=== PATIENT | female | born 1945 | race Caucasian/White ===

== ENCOUNTER 2020-09-28 12:48 | Inpatient (IN) | payer MEDICARE, BC ==
[2020-09-28] MEDS ORDERED: Fentanyl 100 MCG/2 ML VIAL ONE (13:10)
[2020-09-28] MEDS ORDERED: Fentanyl CADD 100 ML IV SCH (13:30)
[2020-09-28] MEDS ORDERED: Morphine 2 MG/ML VIAL SLOW IVP PRN (13:30)
[2020-09-28] MEDS ORDERED: Propofol 1,000 MG/100 ML VIAL IV PRN (13:30)
[2020-09-28] MEDS ORDERED: DISCONTINUE PREVIOUS NARCOTIC PAIN MEDICATIONS AND BENZODIAZEPINES FS SCH (13:30)
[2020-09-28] MEDS ORDERED: Fentanyl BOLUS 250 ML IVPB PRN (13:30)
[2020-09-28] MEDS ORDERED: Propofol BOLUS 1,000 MG/100 ML VIAL IV PRN (13:30)
[2020-09-28] MEDS ORDERED: Lorazepam 2 MG/ML VIAL SLOW IVP PRN (13:30)
[2020-09-28 13:34] LABS: Actual Bicarbonate (HCO3a) 23.9 mEq/L (22-28); Analyzer IN Cardio ER; Base Excess (BEa) -3.7 mEq/L (-2.0 to +3.0); Calcium, Ionized (arterial) 1.15 mmol/L (1.12-1.30); Carboxyhemoglobin (COHb) 0.4 gm% (0.0-3.0); O2 Tension (PaO2), arterial 223.1 mmHg (> 70.0); Potassium - ABG Lab 3.45 mmol/L (3.70-5.30); pH, Arterial 7.26 (7.35-7.45)
[2020-09-28 13:35] LABS: Puncture Site LRA
[2020-09-28] MEDS ORDERED: Iopamidol 370 76% 100 ML VIAL ONE (14:17)
[2020-09-28] MEDS ORDERED: Ventilator Sedation Protocol FS SCH (15:30)
[2020-09-28 15:33] LABS: Troponin I Less than 0.010 ng/mL (< 0.028)
[2020-09-28] MEDS ORDERED: Enoxaparin Sodium 80 MG/0.8 ML SYRINGE ONE (15:41)
[2020-09-28] MEDS ORDERED: Azithromycin 500 MG VIAL ONE (15:41)
[2020-09-28] MEDS ORDERED: Propofol 1,000 MG/100 ML VIAL IV ONE (16:40)
[2020-09-28] MEDS ORDERED: Sterile Water 10 ML ONE (17:11)
[2020-09-28] MEDS ORDERED: Vecuronium 10 MG VIAL ONE (17:11)
[2020-09-28 17:45] LABS: Troponin I Less than 0.010 ng/mL (< 0.028)
[2020-09-28 18:23] LABS: Lactic Acid 1.2 mmol/L (0.5-2.2)
[2020-09-28 20:53] LABS: Troponin I Less than 0.010 ng/mL (< 0.028)
[2020-09-29] MEDS ORDERED: Digoxin 0.5 MG/2 ML AMP SLOW IVP SCH (06:00)
[2020-09-29 06:16] LABS: #Lymphocytes 0.8 thou/uL (1.20-3.40); #Monocytes 0.5 thou/uL (0.11-0.59); #Neutrophils 6.6 thou/uL (1.40-6.50); %Basophils 0.1 % (0.0-1.0); %Eosinophils 0.1 % (0.0-10.0); %Lymphocytes 9.7 % (21.0-51.0); %Monocytes 5.8 % (0.0-10.0); %Neutrophils 84.2 % (42.0-75.0); Hemoglobin 10.2 g/dL (12.0-16.0); Mean Corpuscular HGB CONC 31.3 g/dL (32.0-36.0); Mean Corpuscular Hemoglobin 29.2 pg (27.0-31.0); Mean Corpuscular Volume 93.5 fL (78.0-98.0); Mean Platelet Volume 9.6 fL (7.4-10.4); Platelet Count 165 thou/uL (130-400); RBC Distribution Width 14.6 % (11.5-14.5); Red Blood Cell (RBC) Count 3.48 mill/uL (4.20-5.40); White Blood Cell (WBC) Count 7.8 thou/uL (4.8-10.8)
[2020-09-29 06:28] LABS: Anion Gap 16 mmol/L (10-20); BUN (Urea Nitrogen) 25 mg/dL (9.8-20.1); Calc. Creatinine Clearance 53 mL/min (70-130); Calcium 8.3 mg/dL (7.8-10.44); Carbon Dioxide 23 mmol/L (23-31); Chloride 110 mmol/L (98-107); Glucose 123 mg/dL (83-110); Potassium 3.7 mmol/L (3.5-5.1); Sodium 145 mmol/L (136-145)
[2020-09-29 06:31] LABS: ALT (SGPT) 26 U/L (8-55); AST (SGOT) 27 U/L (5-34); Albumin 3.2 g/dL (3.4-4.8); Alkaline Phosphatase 83 U/L (40-110); Anion Gap 13 mmol/L (10-20); BUN (Urea Nitrogen) 24 mg/dL (9.8-20.1); Bilirubin, Total 0.4 mg/dL (0.2-1.2); Calc. Creatinine Clearance 54 mL/min (70-130); Calcium 8.3 mg/dL (7.8-10.44); Carbon Dioxide 23 mmol/L (23-31); Chloride 110 mmol/L (98-107); Globulin 2.8 g/dL (2.4-3.5); Glucose 123 mg/dL (83-110); Potassium 3.6 mmol/L (3.5-5.1); Sodium 142 mmol/L (136-145)
[2020-09-29 07:45] LABS: Actual Bicarbonate (HCO3a) 24.9 mEq/L (22-28); Base Excess (BEa) -1.1 mEq/L (-2.0 to +3.0); CO2 Tension 47.4 mmHg (35.0-45.0); Calcium, Ionized (arterial) 1.17 mmol/L (1.12-1.30); Carboxyhemoglobin (COHb) 0.4 gm% (0.0-3.0); Hemoglobin (Hb) 10.8 g/dL (12.0-16.0); O2 Tension (PaO2), arterial 67.3 mmHg (> 70.0); Potassium - ABG Lab 3.64 mmol/L (3.70-5.30); pH, Arterial 7.34 (7.35-7.45)
[2020-09-29 07:47] LABS: Puncture Site LRA
[2020-09-29] MEDS: methylPREDNISolone Sod Succ 40 MG VIAL IVP SCH (08:53)
[2020-09-29] MEDS ORDERED: Sodium Chloride 0.9% 500 ML IVPB SCH (09:00)
[2020-09-29] MEDS ORDERED: Pantoprazole 40 MG VIAL IVP SCH (09:00)
[2020-09-29] MEDS ORDERED: FLU VACC QS2020-21(65YR UP)/PF 240 MCG/0.7 ML SYRINGE IM ONE (09:00)
[2020-09-29] MEDS ORDERED: Amiodarone 150 MG, Admixture Fee 1 EACH in Dextrose 5% in Water 100 ML IVPB SCH (09:00)
[2020-09-29] MEDS ORDERED: Enoxaparin Sodium 40 MG/0.4 ML SYRINGE SC SCH (09:00)
[2020-09-29] MEDS: Amiodarone 450 MG, Admixture Fee 1 EACH in Dextrose 5% in Water 250 ML IVPB SCH ×2 (09:14→15:56)
[2020-09-29] MEDS ORDERED: Fentanyl CADD 100 ML ONE (10:04)
[2020-09-29] MEDS: cefTRIAXone\\ROCEPHIN 2 GM in Sodium Chloride 0.9% 100 ML IVPB SCH (10:48)
[2020-09-29] MEDS: Lactated Ringer's 1,000 ML IV SCH (15:19)
[2020-09-29] MEDS: Azithromycin 500 MG in Sodium Chloride 0.9% 250 ML 250 ML IVPB SCH (15:19)
[2020-09-30] MEDS: Lactated Ringer's 1,000 ML IV SCH (00:54)
[2020-09-30] MEDS ORDERED: Haloperidol Lactate 5 MG/ML VIAL SLOW IVP PRN (01:34)
[2020-09-30] MEDS ORDERED: Ondansetron PF 4 MG/2 ML Vial IVP PRN ×2 (01:40→01:45)
[2020-09-30 03:50] LABS: #Lymphocytes 0.8 thou/uL (1.20-3.40); #Monocytes 0.6 thou/uL (0.11-0.59); %Basophils 0.2 % (0.0-1.0); %Eosinophils 0.2 % (0.0-10.0); %Lymphocytes 8.6 % (21.0-51.0); %Monocytes 6.7 % (0.0-10.0); %Neutrophils 84.3 % (42.0-75.0); Hemoglobin 10.1 g/dL (12.0-16.0); Mean Corpuscular HGB CONC 31.6 g/dL (32.0-36.0); Mean Corpuscular Hemoglobin 29.7 pg (27.0-31.0); Mean Platelet Volume 9.5 fL (7.4-10.4); Platelet Count 180 thou/uL (130-400); RBC Distribution Width 14.6 % (11.5-14.5); White Blood Cell (WBC) Count 9.5 thou/uL (4.8-10.8)
[2020-09-30 04:14] LABS: ALT (SGPT) 23 U/L (8-55); AST (SGOT) 19 U/L (5-34); Albumin 3.3 g/dL (3.4-4.8); Alkaline Phosphatase 86 U/L (40-110); Anion Gap 15 mmol/L (10-20); BUN (Urea Nitrogen) 28 mg/dL (9.8-20.1); Bilirubin, Total 0.5 mg/dL (0.2-1.2); Calc. Creatinine Clearance 63 mL/min (70-130); Calcium 9.1 mg/dL (7.8-10.44); Carbon Dioxide 23 mmol/L (23-31); Chloride 111 mmol/L (98-107); Globulin 2.9 g/dL (2.4-3.5); Glucose 95 mg/dL (83-110); Magnesium 2.1 mg/dL (1.6-2.6); Potassium 3.5 mmol/L (3.5-5.1); Protein, Total 6.2 g/dL (5.8-8.1); Sodium 145 mmol/L (136-145)
[2020-09-30] MEDS ORDERED: Non-Formulary Item 1 EACH (Omeprazole [Omeprazole] 20 MG Capsule.Dr) PO SCH (09:00)
[2020-09-30] MEDS ORDERED: Non-Formulary Item 1 EACH (Fluticasone/Umeclidin/Vilanter [Trelegy Ellipta 100-62.5-25] 1 INH SCH (09:00)
[2020-09-30] MEDS ORDERED: Non-Formulary Item 1 EACH (Losartan Potassium [Losartan Potassium] 100 MG Tablet) PO SCH (09:00)
[2020-09-30] MEDS ORDERED: Non-Formulary Item 1 EACH (Carvedilol [Coreg] 12.5 MG Tab) PO SCH (09:00)
[2020-09-30] MEDS ORDERED: Fluticasone/Umeclidin/Vilanter [Trelegy Ellipta 100-62.5-25] INH SCH (09:00)
[2020-09-30] MEDS ORDERED: Non-Formulary Item 1 EACH (Amlodipine Besylate [Amlodipine Besylate] 2.5 MG Tablet) PO SCH (09:00)
[2020-09-30] MEDS ORDERED: Non-Formulary Item 1 EACH (Magnesium Oxide [Mag-Oxide] 200 MG Tablet) PO SCH (09:00)
[2020-09-30] MEDS ORDERED: Non-Formulary Item 1 EACH (Potassium Chloride [Potassium Chloride] 10 MEQ Capsule.Er) PO SCH (09:00)
[2020-09-30] MEDS ORDERED: Carvedilol 6.25 MG TAB PO SCH (09:00)
[2020-09-30] MEDS ORDERED: Allopurinol 300 MG TAB PO SCH (09:00)
[2020-09-30 10:33] LABS: Actual Bicarbonate (HCO3a) 27.8 mEq/L (22-28); Base Excess (BEa) 1.4 mEq/L (-2.0 to +3.0); CO2 Tension 52.5 mmHg (35.0-45.0); Calcium, Ionized (arterial) 1.24 mmol/L (1.12-1.30); Carboxyhemoglobin (COHb) 0.5 gm% (0.0-3.0); Hemoglobin (Hb) 10.5 g/dL (12.0-16.0); Potassium - ABG Lab 3.53 mmol/L (3.70-5.30); pH, Arterial 7.34 (7.35-7.45)
[2020-09-30 10:36] LABS: O2 Tension (PaO2), arterial 56.6 mmHg (> 70.0)
[2020-09-30] MEDS: Carvedilol 6.25 MG TAB PO SCH ×2 (11:11→20:14)
[2020-09-30] MEDS: Magnesium Oxide 400 MG TAB PO SCH (11:11)
[2020-09-30] MEDS: Apixaban 5 MG TAB PO SCH (11:11)
[2020-09-30] MEDS: Losartan 25 MG TAB PO SCH (11:12)
[2020-09-30] MEDS: Amlodipine 5 MG TAB PO SCH (11:12)
[2020-09-30] MEDS: Levothyroxine Sodium 25 MCG TAB PO SCH (11:13)
[2020-09-30] MEDS: methylPREDNISolone Sod Succ 40 MG VIAL IVP SCH ×2 (11:17→22:09)
[2020-09-30] MEDS: cefTRIAXone\\ROCEPHIN 2 GM in Sodium Chloride 0.9% 100 ML IVPB SCH (12:00)
[2020-09-30] MEDS: Potassium Chloride 10 MEQ TAB PO SCH ×2 (13:55→20:15)
[2020-09-30] MEDS: Azithromycin 500 MG in Sodium Chloride 0.9% 250 ML 250 ML IVPB SCH (15:43)
[2020-09-30] MEDS ORDERED: Mometasone 100 MCG/PUFF (1 INHALER) INH SCH (18:30)
[2020-09-30] MEDS ORDERED: Temazepam 15 MG CAP PO SCH (21:00)
[2020-09-30] MEDS ORDERED: tiZANidine HCl 4 MG TAB PO SCH (21:00)
[2020-09-30] MEDS ORDERED: Non-Formulary Item 1 EACH (Tizanidine Hcl [Tizanidine Hcl] 4 MG Capsule) PO SCH (21:00)
[2020-09-30] MEDS ORDERED: Non-Formulary Item 1 EACH (Temazepam [Temazepam] 30 MG Capsule) PO SCH (21:00)
[2020-10-01] MEDS ORDERED: hydrALAZINE 20 MG/ML VIAL SLOW IVP SCH (02:15)
[2020-10-01] MEDS ORDERED: Haloperidol Lactate 5 MG/ML VIAL SLOW IVP PRN (03:14)
[2020-10-01] MEDS ORDERED: Haloperidol Lactate 5 MG/ML VIAL SLOW IVP SCH (03:30)
[2020-10-01 06:00] LABS: #Lymphocytes 0.5 thou/uL (1.20-3.40); #Monocytes 0.6 thou/uL (0.11-0.59); #Neutrophils 10.9 thou/uL (1.40-6.50); %Basophils 0.1 % (0.0-1.0); %Lymphocytes 3.9 % (21.0-51.0); %Monocytes 5.1 % (0.0-10.0); %Neutrophils 90.9 % (42.0-75.0); Hemoglobin 11.1 g/dL (12.0-16.0); Mean Corpuscular Hemoglobin 28.7 pg (27.0-31.0); Mean Corpuscular Volume 92.6 fL (78.0-98.0); Mean Platelet Volume 9.2 fL (7.4-10.4); Platelet Count 236 thou/uL (130-400); RBC Distribution Width 14.4 % (11.5-14.5); Red Blood Cell (RBC) Count 3.85 mill/uL (4.20-5.40)
[2020-10-01 06:19] LABS: ALT (SGPT) 21 U/L (8-55); AST (SGOT) 21 U/L (5-34); Albumin 3.7 g/dL (3.4-4.8); Alkaline Phosphatase 102 U/L (40-110); Anion Gap 19 mmol/L (10-20); BUN (Urea Nitrogen) 26 mg/dL (9.8-20.1); Bilirubin, Total 0.6 mg/dL (0.2-1.2); Calc. Creatinine Clearance 75 mL/min (70-130); Calcium 9.7 mg/dL (7.8-10.44); Carbon Dioxide 20 mmol/L (23-31); Chloride 113 mmol/L (98-107); Globulin 3.4 g/dL (2.4-3.5); Glucose 119 mg/dL (83-110); Potassium 3.6 mmol/L (3.5-5.1); Protein, Total 7.1 g/dL (5.8-8.1); Sodium 148 mmol/L (136-145)
[2020-10-01] MEDS: methylPREDNISolone Sod Succ 40 MG VIAL IVP SCH ×2 (06:22→20:03)
[2020-10-01] MEDS: Amlodipine 5 MG TAB PO SCH (07:40)
[2020-10-01] MEDS: Carvedilol 6.25 MG TAB PO SCH ×2 (07:40→20:03)
[2020-10-01 07:49] LABS: Actual Bicarbonate (HCO3a) 23.4 mEq/L (22-28); Analyzer IN Cardio ER; Base Excess (BEa) -0.5 mEq/L (-2.0 to +3.0); Calcium, Ionized (arterial) 1.25 mmol/L (1.12-1.30); Carboxyhemoglobin (COHb) 0.6 gm% (0.0-3.0); Hemoglobin (Hb) 12.4 g/dL (12.0-16.0); Potassium - ABG Lab 3.46 mmol/L (3.70-5.30); pH, Arterial 7.43 (7.35-7.45)
[2020-10-01 07:55] LABS: O2 Tension (PaO2), arterial 55.2 mmHg (> 70.0); Puncture Site RRA
[2020-10-01] MEDS ORDERED: Lactated Ringer's 1,000 ML IV SCH (09:15)
[2020-10-01] MEDS ORDERED: Amiodarone 150 MG, Admixture Fee 1 EACH in Dextrose 5% in Water 100 ML IVPB SCH (09:15)
[2020-10-01] MEDS: Amiodarone 450 MG, Admixture Fee 1 EACH in Dextrose 5% in Water 250 ML IVPB SCH (09:16)
[2020-10-01] MEDS: Magnesium Oxide 400 MG TAB PO SCH (10:21)
[2020-10-01] MEDS: Losartan 25 MG TAB PO SCH (10:22)
[2020-10-01] MEDS: Levothyroxine Sodium 25 MCG TAB PO SCH (10:22)
[2020-10-01] MEDS: Allopurinol 100 MG TAB PO SCH (10:22)
[2020-10-01] MEDS: Sodium Chloride 0.45% 1,000 ML IV SCH ×2 (10:39→23:56)
[2020-10-01] MEDS: Apixaban 5 MG TAB PO SCH ×3 (11:18→20:02)
[2020-10-01] MEDS: cefTRIAXone\\ROCEPHIN 2 GM in Sodium Chloride 0.9% 100 ML IVPB SCH (11:25)
[2020-10-01] MEDS: Potassium Chloride 10 MEQ TAB PO SCH ×2 (11:34→19:57)
[2020-10-01] MEDS: Lorazepam 2 MG/ML VIAL SLOW IVP PRN (19:42)
[2020-10-02] MEDS: hydrALAZINE 20 MG/ML VIAL SLOW IVP SCH ×3 (01:32→21:38)
[2020-10-02] MEDS: Lorazepam 2 MG/ML VIAL SLOW IVP PRN ×2 (03:04→19:55)
[2020-10-02 03:22] LABS: #Lymphocytes 0.7 thou/uL (1.20-3.40); #Monocytes 0.4 thou/uL (0.11-0.59); #Neutrophils 8.4 thou/uL (1.40-6.50); %Basophils 0.1 % (0.0-1.0); %Lymphocytes 7.5 % (21.0-51.0); %Monocytes 3.7 % (0.0-10.0); %Neutrophils 88.6 % (42.0-75.0); Mean Corpuscular Hemoglobin 29.3 pg (27.0-31.0); Mean Corpuscular Volume 91.6 fL (78.0-98.0); Mean Platelet Volume 9.2 fL (7.4-10.4); Platelet Count 227 thou/uL (130-400); RBC Distribution Width 14.7 % (11.5-14.5); Red Blood Cell (RBC) Count 3.76 mill/uL (4.20-5.40); White Blood Cell (WBC) Count 9.5 thou/uL (4.8-10.8)
[2020-10-02 03:48] LABS: ALT (SGPT) 22 U/L (8-55); AST (SGOT) 20 U/L (5-34); Albumin 3.6 g/dL (3.4-4.8); Alkaline Phosphatase 101 U/L (40-110); Anion Gap 16 mmol/L (10-20); BUN (Urea Nitrogen) 29 mg/dL (9.8-20.1); Bilirubin, Total 0.7 mg/dL (0.2-1.2); Calc. Creatinine Clearance 72 mL/min (70-130); Calcium 9.1 mg/dL (7.8-10.44); Carbon Dioxide 21 mmol/L (23-31); Chloride 112 mmol/L (98-107); Globulin 3.1 g/dL (2.4-3.5); Glucose 143 mg/dL (83-110); Potassium 3.3 mmol/L (3.5-5.1); Protein, Total 6.7 g/dL (5.8-8.1); Sodium 146 mmol/L (136-145)
[2020-10-02] MEDS ORDERED: Acetaminophen 325 MG TAB PO SCH ×2 (04:30)
[2020-10-02] MEDS ORDERED: hydrALAZINE 20 MG/ML VIAL SLOW IVP SCH ×2 (06:30→21:15)
[2020-10-02] MEDS ORDERED: Potassium Chloride 20 MEQ TAB PO SCH (07:00)
[2020-10-02] MEDS: Apixaban 5 MG TAB PO SCH ×2 (07:36→19:59)
[2020-10-02] MEDS: Carvedilol 6.25 MG TAB PO SCH ×2 (07:36→19:54)
[2020-10-02] MEDS: Losartan 25 MG TAB PO SCH (07:36)
[2020-10-02] MEDS: Magnesium Oxide 400 MG TAB PO SCH (07:36)
[2020-10-02] MEDS: Levothyroxine Sodium 25 MCG TAB PO SCH (07:36)
[2020-10-02] MEDS: Potassium Chloride 10 MEQ TAB PO SCH (07:37)
[2020-10-02] MEDS: Allopurinol 100 MG TAB PO SCH (07:37)
[2020-10-02] MEDS: methylPREDNISolone Sod Succ 40 MG VIAL IVP SCH ×2 (07:38→19:53)
[2020-10-02] MEDS: Amiodarone 450 MG, Admixture Fee 1 EACH in Dextrose 5% in Water 250 ML IVPB SCH (09:30)
[2020-10-02] MEDS: cefTRIAXone\\ROCEPHIN 2 GM in Sodium Chloride 0.9% 100 ML IVPB SCH (10:24)
[2020-10-02] MEDS: Sodium Chloride 0.45% 1,000 ML IV SCH (13:09)
[2020-10-02] MEDS: Potassium Bicarbonate/Cit Ac 20 MEQ TAB PO SCH (19:53)
[2020-10-02] MEDS: Pantoprazole 40 MG GRANULES PACKET PO SCH (19:53)
[2020-10-02] MEDS: OLANZapine 2.5 MG TAB PO SCH (19:54)
[2020-10-02] MEDS: Amiodarone 200 MG TAB PO SCH (19:54)
[2020-10-02] MEDS: hydrALAZINE 20 MG/ML VIAL SLOW IVP PRN (22:12)
[2020-10-03] MEDS: Sodium Chloride 0.45% 1,000 ML IV SCH (03:51)
[2020-10-03 04:18] LABS: Albumin 3.1 g/dL (3.4-4.8)
[2020-10-03 04:19] LABS: Chloride 114 mmol/L (98-107); Potassium 4.2 mmol/L (3.5-5.1); Sodium 146 mmol/L (136-145)
[2020-10-03 04:20] LABS: Calcium 8.7 mg/dL (7.8-10.44)
[2020-10-03 04:21] LABS: Glucose 116 mg/dL (83-110); Protein, Total 6.1 g/dL (5.8-8.1)
[2020-10-03 04:22] LABS: Bilirubin, Total 0.6 mg/dL (0.2-1.2); Carbon Dioxide 20 mmol/L (23-31)
[2020-10-03 04:23] LABS: Alkaline Phosphatase 95 U/L (40-110)
[2020-10-03 04:24] LABS: Calc. Creatinine Clearance 76 mL/min (70-130)
[2020-10-03 04:25] LABS: BUN (Urea Nitrogen) 27 mg/dL (9.8-20.1)
[2020-10-03 04:26] LABS: ALT (SGPT) 31 U/L (8-55); AST (SGOT) 33 U/L (5-34)
[2020-10-03 05:16] LABS: Anion Gap 16 mmol/L (10-20)
[2020-10-03] MEDS: methylPREDNISolone Sod Succ 40 MG VIAL IVP SCH ×2 (08:21→21:16)
[2020-10-03] MEDS: Potassium Bicarbonate/Cit Ac 20 MEQ TAB PO SCH ×2 (08:21→21:16)
[2020-10-03] MEDS: Amiodarone 200 MG TAB PO SCH ×2 (08:21→21:15)
[2020-10-03] MEDS: Magnesium Oxide 400 MG TAB PO SCH (08:21)
[2020-10-03] MEDS: Pantoprazole 40 MG GRANULES PACKET PO SCH ×2 (08:22→21:16)
[2020-10-03] MEDS: Levothyroxine Sodium 25 MCG TAB PO SCH (08:22)
[2020-10-03] MEDS: Allopurinol 100 MG TAB PO SCH (08:22)
[2020-10-03] MEDS: Carvedilol 6.25 MG TAB PO SCH ×2 (08:22→21:16)
[2020-10-03] MEDS: Losartan 25 MG TAB PO SCH (08:25)
[2020-10-03] MEDS: Apixaban 5 MG TAB PO SCH ×2 (08:26→21:16)
[2020-10-03 08:31] LABS: #Eosinphils 0.1 thou/uL (0.0-0.7); #Lymphocytes 1.5 thou/uL (1.20-3.40); #Monocytes 1.2 thou/uL (0.11-0.59); #Neutrophils 7.5 thou/uL (1.40-6.50); %Basophils 0.3 % (0.0-1.0); %Eosinophils 0.6 % (0.0-10.0); %Lymphocytes 14.9 % (21.0-51.0); %Monocytes 11.5 % (0.0-10.0); %Neutrophils 72.8 % (42.0-75.0); Hemoglobin 11.5 g/dL (12.0-16.0); Mean Corpuscular HGB CONC 32.3 g/dL (32.0-36.0); Mean Corpuscular Volume 92.8 fL (78.0-98.0); Mean Platelet Volume 8.9 fL (7.4-10.4); Platelet Count 247 thou/uL (130-400); RBC Distribution Width 14.9 % (11.5-14.5); Red Blood Cell (RBC) Count 3.83 mill/uL (4.20-5.40); White Blood Cell (WBC) Count 10.3 thou/uL (4.8-10.8)
[2020-10-03] MEDS ORDERED: Sodium Chloride 0.45% 1,000 ML IV SCH (11:39)
[2020-10-03] MEDS: OLANZapine 2.5 MG TAB PO SCH (21:16)
[2020-10-03] MEDS: Lorazepam 2 MG/ML VIAL SLOW IVP PRN (21:29)
[2020-10-03] MEDS: hydrALAZINE 20 MG/ML VIAL SLOW IVP PRN (21:29)
[2020-10-04 05:39] LABS: Mean Corpuscular HGB CONC 33.5 g/dL (32.0-36.0); Mean Corpuscular Hemoglobin 30.6 pg (27.0-31.0); Mean Corpuscular Volume 91.3 fL (78.0-98.0); Mean Platelet Volume 8.9 fL (7.4-10.4); Platelet Count 281 thou/uL (130-400); RBC Distribution Width 15.1 % (11.5-14.5); White Blood Cell (WBC) Count 10.3 thou/uL (4.8-10.8)
[2020-10-04 05:41] LABS: ALT (SGPT) 37 U/L (8-55); AST (SGOT) 25 U/L (5-34); Albumin 3.4 g/dL (3.4-4.8); Alkaline Phosphatase 97 U/L (40-110); Anion Gap 15 mmol/L (10-20); BUN (Urea Nitrogen) 22 mg/dL (9.8-20.1); Bilirubin, Total 0.7 mg/dL (0.2-1.2); Calc. Creatinine Clearance 78 mL/min (70-130); Carbon Dioxide 23 mmol/L (23-31); Chloride 111 mmol/L (98-107); Globulin 2.7 g/dL (2.4-3.5); Glucose 109 mg/dL (83-110); Potassium 3.9 mmol/L (3.5-5.1); Protein, Total 6.1 g/dL (5.8-8.1); Sodium 145 mmol/L (136-145)
[2020-10-04 06:01] LABS: Band 4 % (5-11); Lymphocytes 13 % (21-51); MDiff Complete? YES; Monocytes 8 % (0-10); Neutrophil 75 % (42-75)
[2020-10-04] MEDS: Levothyroxine Sodium 25 MCG TAB PO SCH (06:17)
[2020-10-04] MEDS: Carvedilol 6.25 MG TAB PO SCH ×2 (09:04→20:45)
[2020-10-04] MEDS: Magnesium Oxide 400 MG TAB PO SCH (09:04)
[2020-10-04] MEDS: Potassium Bicarbonate/Cit Ac 20 MEQ TAB PO SCH ×2 (09:05→20:45)
[2020-10-04] MEDS: Pantoprazole 40 MG GRANULES PACKET PO SCH ×2 (09:05→20:31)
[2020-10-04] MEDS: Amiodarone 200 MG TAB PO SCH ×2 (09:05→20:42)
[2020-10-04] MEDS: Apixaban 5 MG TAB PO SCH ×2 (09:05→20:43)
[2020-10-04] MEDS: Allopurinol 100 MG TAB PO SCH (09:05)
[2020-10-04] MEDS: methylPREDNISolone Sod Succ 40 MG VIAL IVP SCH (09:06)
[2020-10-04] MEDS: Losartan 25 MG TAB PO SCH (09:11)
[2020-10-04] MEDS: Vancomycin HCl 25 MG/ML Oral PO SCH ×2 (14:21→17:59)
[2020-10-04] MEDS: OLANZapine 2.5 MG TAB PO SCH (20:43)
[2020-10-04] MEDS: Pregabalin 75 MG CAP PO SCH (20:44)
[2020-10-04] MEDS ORDERED: AMOXicillin 250 MG CAP PO SCH (21:00)
[2020-10-05] MEDS: Vancomycin HCl 25 MG/ML Oral PO SCH ×2 (00:49→06:00)
[2020-10-05] MEDS: hydrALAZINE 20 MG/ML VIAL SLOW IVP PRN (00:59)
[2020-10-05 04:45] LABS: #Eosinphils 0.2 thou/uL (0.0-0.7); #Lymphocytes 1.4 thou/uL (1.20-3.40); #Monocytes 0.7 thou/uL (0.11-0.59); #Neutrophils 4.2 thou/uL (1.40-6.50); %Basophils 0.5 % (0.0-1.0); %Eosinophils 3.7 % (0.0-10.0); %Lymphocytes 21.1 % (21.0-51.0); %Monocytes 10.9 % (0.0-10.0); %Neutrophils 63.8 % (42.0-75.0); Hemoglobin 11.2 g/dL (12.0-16.0); Mean Corpuscular HGB CONC 33.1 g/dL (32.0-36.0); Mean Corpuscular Hemoglobin 30.2 pg (27.0-31.0); Mean Corpuscular Volume 91.4 fL (78.0-98.0); Mean Platelet Volume 8.6 fL (7.4-10.4); Platelet Count 265 thou/uL (130-400); Red Blood Cell (RBC) Count 3.71 mill/uL (4.20-5.40); White Blood Cell (WBC) Count 6.6 thou/uL (4.8-10.8)
[2020-10-05 05:04] LABS: ALT (SGPT) 33 U/L (8-55); AST (SGOT) 16 U/L (5-34); Albumin 3.2 g/dL (3.4-4.8); Alkaline Phosphatase 82 U/L (40-110); Anion Gap 10 mmol/L (10-20); BUN (Urea Nitrogen) 23 mg/dL (9.8-20.1); Bilirubin, Total 0.5 mg/dL (0.2-1.2); Calc. Creatinine Clearance 66 mL/min (70-130); Calcium 8.2 mg/dL (7.8-10.44); Carbon Dioxide 26 mmol/L (23-31); Chloride 109 mmol/L (98-107); Globulin 2.5 g/dL (2.4-3.5); Glucose 94 mg/dL (83-110); Potassium 3.4 mmol/L (3.5-5.1); Protein, Total 5.7 g/dL (5.8-8.1); Sodium 142 mmol/L (136-145)
[2020-10-05] MEDS: Levothyroxine Sodium 25 MCG TAB PO SCH (05:59)
[2020-10-05] MEDS ORDERED: Potassium Chloride 20 MEQ TAB PO SCH (08:15)
[2020-10-05] MEDS: Pantoprazole 40 MG GRANULES PACKET PO SCH ×2 (09:52→20:15)
[2020-10-05] MEDS: Losartan 25 MG TAB PO SCH (09:53)
[2020-10-05] MEDS: Azithromycin 250 MG TAB PO SCH (09:53)
[2020-10-05] MEDS: Magnesium Oxide 400 MG TAB PO SCH (09:54)
[2020-10-05] MEDS: Potassium Bicarbonate/Cit Ac 20 MEQ TAB PO SCH ×2 (09:54→20:14)
[2020-10-05] MEDS: predniSONE 20 MG TAB PO SCH (09:54)
[2020-10-05] MEDS: Apixaban 5 MG TAB PO SCH ×2 (09:55→20:17)
[2020-10-05] MEDS: Pregabalin 75 MG CAP PO SCH ×2 (09:55→20:15)
[2020-10-05] MEDS: Amiodarone 200 MG TAB PO SCH (09:55)
[2020-10-05] MEDS: Carvedilol 6.25 MG TAB PO SCH ×2 (09:55→20:16)
[2020-10-05] MEDS: Allopurinol 100 MG TAB PO SCH (09:55)
[2020-10-05] MEDS: NIFEdipine XL 30 MG TAB PO SCH (09:57)
[2020-10-05] MEDS: Acetaminophen 325 MG TAB PO PRN (16:02)
[2020-10-05] MEDS: OLANZapine 2.5 MG TAB PO SCH (20:16)
[2020-10-06 04:29] LABS: #Eosinphils 0.2 thou/uL (0.0-0.7); #Lymphocytes 1.8 thou/uL (1.20-3.40); #Monocytes 0.7 thou/uL (0.11-0.59); #Neutrophils 7.5 thou/uL (1.40-6.50); %Basophils 0.3 % (0.0-1.0); %Eosinophils 1.6 % (0.0-10.0); %Lymphocytes 17.4 % (21.0-51.0); %Monocytes 7.1 % (0.0-10.0); %Neutrophils 73.6 % (42.0-75.0); Hemoglobin 12.3 g/dL (12.0-16.0); Mean Corpuscular HGB CONC 31.4 g/dL (32.0-36.0); Mean Corpuscular Hemoglobin 28.8 pg (27.0-31.0); Mean Corpuscular Volume 91.9 fL (78.0-98.0); Mean Platelet Volume 8.5 fL (7.4-10.4); Platelet Count 326 thou/uL (130-400); RBC Distribution Width 15.3 % (11.5-14.5); Red Blood Cell (RBC) Count 4.29 mill/uL (4.20-5.40); White Blood Cell (WBC) Count 10.2 thou/uL (4.8-10.8)
[2020-10-06 04:49] LABS: ALT (SGPT) 29 U/L (8-55); AST (SGOT) 14 U/L (5-34); Albumin 3.7 g/dL (3.4-4.8); Alkaline Phosphatase 99 U/L (40-110); Anion Gap 12 mmol/L (10-20); BUN (Urea Nitrogen) 24 mg/dL (9.8-20.1); Bilirubin, Total 0.4 mg/dL (0.2-1.2); Calc. Creatinine Clearance 60 mL/min (70-130); Calcium 8.7 mg/dL (7.8-10.44); Carbon Dioxide 26 mmol/L (23-31); Chloride 109 mmol/L (98-107); Globulin 2.9 g/dL (2.4-3.5); Glucose 110 mg/dL (83-110); Potassium 3.9 mmol/L (3.5-5.1); Protein, Total 6.6 g/dL (5.8-8.1); Sodium 143 mmol/L (136-145)
[2020-10-06] MEDS: Acetaminophen 325 MG TAB PO PRN ×2 (04:53→20:53)
[2020-10-06] MEDS: Levothyroxine Sodium 25 MCG TAB PO SCH (05:36)
[2020-10-06] MEDS: Potassium Bicarbonate/Cit Ac 20 MEQ TAB PO SCH ×2 (07:59→20:54)
[2020-10-06] MEDS: Magnesium Oxide 400 MG TAB PO SCH (07:59)
[2020-10-06] MEDS: NIFEdipine XL 30 MG TAB PO SCH (07:59)
[2020-10-06] MEDS: Pantoprazole 40 MG GRANULES PACKET PO SCH ×2 (08:00→20:54)
[2020-10-06] MEDS: Losartan 25 MG TAB PO SCH (08:00)
[2020-10-06] MEDS: Pregabalin 75 MG CAP PO SCH ×2 (08:00→20:53)
[2020-10-06] MEDS: Amiodarone 200 MG TAB PO SCH (08:01)
[2020-10-06] MEDS: Azithromycin 250 MG TAB PO SCH (08:01)
[2020-10-06] MEDS: predniSONE 20 MG TAB PO SCH (08:01)
[2020-10-06] MEDS: Apixaban 5 MG TAB PO SCH ×2 (08:02→20:54)
[2020-10-06] MEDS: Carvedilol 6.25 MG TAB PO SCH (08:02)
[2020-10-06] MEDS: Allopurinol 100 MG TAB PO SCH (08:02)
[2020-10-06] MEDS ORDERED: NIFEdipine XL 30 MG TAB PO SCH (09:39)
[2020-10-06] MEDS ORDERED: NIFEdipine XL 60 MG TAB PO SCH (09:45)
[2020-10-06] MEDS ORDERED: Carvedilol 6.25 MG TAB PO SCH (21:00)
[2020-10-07 04:42] LABS: #Eosinphils 0.2 thou/uL (0.0-0.7); #Lymphocytes 2.1 thou/uL (1.20-3.40); #Monocytes 0.6 thou/uL (0.11-0.59); #Neutrophils 5.4 thou/uL (1.40-6.50); %Eosinophils 1.8 % (0.0-10.0); %Lymphocytes 25.6 % (21.0-51.0); %Monocytes 7.1 % (0.0-10.0); %Neutrophils 65.5 % (42.0-75.0); Hemoglobin 11.4 g/dL (12.0-16.0); Mean Corpuscular HGB CONC 32.5 g/dL (32.0-36.0); Mean Corpuscular Hemoglobin 29.9 pg (27.0-31.0); Mean Corpuscular Volume 92.2 fL (78.0-98.0); Mean Platelet Volume 8.3 fL (7.4-10.4); Platelet Count 298 thou/uL (130-400); RBC Distribution Width 15.4 % (11.5-14.5); Red Blood Cell (RBC) Count 3.81 mill/uL (4.20-5.40); White Blood Cell (WBC) Count 8.2 thou/uL (4.8-10.8)
[2020-10-07 05:08] LABS: ALT (SGPT) 30 U/L (8-55); AST (SGOT) 16 U/L (5-34); Albumin 3.4 g/dL (3.4-4.8); Alkaline Phosphatase 82 U/L (40-110); Anion Gap 10 mmol/L (10-20); BUN (Urea Nitrogen) 20 mg/dL (9.8-20.1); Bilirubin, Total 0.4 mg/dL (0.2-1.2); Calc. Creatinine Clearance 62 mL/min (70-130); Calcium 8.5 mg/dL (7.8-10.44); Carbon Dioxide 27 mmol/L (23-31); Chloride 108 mmol/L (98-107); Globulin 2.6 g/dL (2.4-3.5); Glucose 98 mg/dL (83-110); Potassium 4.1 mmol/L (3.5-5.1); Sodium 141 mmol/L (136-145)
[2020-10-07] MEDS: Levothyroxine Sodium 25 MCG TAB PO SCH (05:59)
[2020-10-07] MEDS: Allopurinol 100 MG TAB PO SCH (08:56)
[2020-10-07] MEDS: predniSONE 20 MG TAB PO SCH (08:56)
[2020-10-07] MEDS: Amiodarone 200 MG TAB PO SCH (08:56)
[2020-10-07] MEDS: Losartan 25 MG TAB PO SCH (08:57)
[2020-10-07] MEDS: Magnesium Oxide 400 MG TAB PO SCH (08:57)
[2020-10-07] MEDS: Azithromycin 250 MG TAB PO SCH (08:58)
[2020-10-07] MEDS: Pregabalin 75 MG CAP PO SCH ×2 (08:58→21:07)
[2020-10-07] MEDS: Potassium Bicarbonate/Cit Ac 20 MEQ TAB PO SCH ×2 (08:59→21:07)
[2020-10-07] MEDS: Apixaban 5 MG TAB PO SCH ×2 (09:00→21:07)
[2020-10-07] MEDS ORDERED: NIFEdipine XL 60 MG TAB PO SCH (09:00)
[2020-10-07] MEDS: NIFEdipine XL 30 MG TAB PO SCH (09:00)
[2020-10-07] MEDS: Pantoprazole 40 MG GRANULES PACKET PO SCH ×2 (09:01→21:07)
[2020-10-07] MEDS: Furosemide 20 MG TAB PO SCH (10:40)
[2020-10-07] MEDS ORDERED: Loperamide HCl 2 MG CAP PO PRN (11:08)
[2020-10-07] MEDS: Lorazepam 2 MG/ML VIAL SLOW IVP PRN ×2 (15:46→21:44)
[2020-10-08] MEDS: Levothyroxine Sodium 25 MCG TAB PO SCH (05:05)
[2020-10-08 05:06] LABS: #Eosinphils 0.1 thou/uL (0.0-0.7); #Lymphocytes 1.8 thou/uL (1.20-3.40); #Monocytes 0.7 thou/uL (0.11-0.59); #Neutrophils 6.3 thou/uL (1.40-6.50); %Basophils 0.2 % (0.0-1.0); %Lymphocytes 20.1 % (21.0-51.0); %Monocytes 7.6 % (0.0-10.0); %Neutrophils 71.1 % (42.0-75.0); Hemoglobin 10.4 g/dL (12.0-16.0); Mean Corpuscular HGB CONC 33.1 g/dL (32.0-36.0); Mean Corpuscular Hemoglobin 30.5 pg (27.0-31.0); Mean Corpuscular Volume 92.3 fL (78.0-98.0); Platelet Count 284 thou/uL (130-400); RBC Distribution Width 15.3 % (11.5-14.5); Red Blood Cell (RBC) Count 3.42 mill/uL (4.20-5.40); White Blood Cell (WBC) Count 8.8 thou/uL (4.8-10.8)
[2020-10-08 05:31] LABS: ALT (SGPT) 22 U/L (8-55); AST (SGOT) 12 U/L (5-34); Albumin 3.2 g/dL (3.4-4.8); Alkaline Phosphatase 76 U/L (40-110); Anion Gap 11 mmol/L (10-20); BUN (Urea Nitrogen) 19 mg/dL (9.8-20.1); Bilirubin, Total 0.4 mg/dL (0.2-1.2); Calc. Creatinine Clearance 63 mL/min (70-130); Calcium 8.5 mg/dL (7.8-10.44); Carbon Dioxide 29 mmol/L (23-31); Chloride 107 mmol/L (98-107); Globulin 2.4 g/dL (2.4-3.5); Glucose 92 mg/dL (83-110); Potassium 4.1 mmol/L (3.5-5.1); Protein, Total 5.6 g/dL (5.8-8.1); Sodium 143 mmol/L (136-145)
[2020-10-08] MEDS: predniSONE 20 MG TAB PO SCH (08:50)
[2020-10-08] MEDS: Amiodarone 200 MG TAB PO SCH (08:51)
[2020-10-08] MEDS: Allopurinol 100 MG TAB PO SCH (08:51)
[2020-10-08] MEDS: Pregabalin 75 MG CAP PO SCH ×2 (08:52→21:29)
[2020-10-08] MEDS: Apixaban 5 MG TAB PO SCH ×2 (08:54→21:28)
[2020-10-08] MEDS: Losartan 25 MG TAB PO SCH (08:54)
[2020-10-08] MEDS: Potassium Bicarbonate/Cit Ac 20 MEQ TAB PO SCH ×2 (08:55→21:28)
[2020-10-08] MEDS: Furosemide 20 MG TAB PO SCH (08:55)
[2020-10-08] MEDS: NIFEdipine XL 30 MG TAB PO SCH (08:56)
[2020-10-08] MEDS: Pantoprazole 40 MG GRANULES PACKET PO SCH ×2 (08:56→21:28)
[2020-10-08] MEDS: Magnesium Oxide 400 MG TAB PO SCH (08:56)
[2020-10-08] MEDS: Acetaminophen 325 MG TAB PO PRN (11:41)
[2020-10-08 13:38] VITALS: BMI 28.0
[2020-10-08] MEDS ORDERED: Lorazepam 0.5 MG TAB PO PRN (23:34)
[2020-10-09 05:04] LABS: #Eosinphils 0.1 thou/uL (0.0-0.7); #Lymphocytes 1.8 thou/uL (1.20-3.40); #Monocytes 0.9 thou/uL (0.11-0.59); #Neutrophils 5.8 thou/uL (1.40-6.50); %Basophils 0.3 % (0.0-1.0); %Eosinophils 1.2 % (0.0-10.0); %Lymphocytes 20.9 % (21.0-51.0); %Monocytes 10.2 % (0.0-10.0); %Neutrophils 67.4 % (42.0-75.0); Hemoglobin 10.1 g/dL (12.0-16.0); Mean Corpuscular HGB CONC 32.1 g/dL (32.0-36.0); Mean Corpuscular Hemoglobin 29.7 pg (27.0-31.0); Mean Corpuscular Volume 92.7 fL (78.0-98.0); Mean Platelet Volume 8.4 fL (7.4-10.4); Platelet Count 309 thou/uL (130-400); RBC Distribution Width 15.4 % (11.5-14.5); White Blood Cell (WBC) Count 8.6 thou/uL (4.8-10.8)
[2020-10-09 05:28] LABS: ALT (SGPT) 20 U/L (8-55); AST (SGOT) 14 U/L (5-34); Albumin 3.2 g/dL (3.4-4.8); Alkaline Phosphatase 84 U/L (40-110); Anion Gap 13 mmol/L (10-20); BUN (Urea Nitrogen) 17 mg/dL (9.8-20.1); Bilirubin, Total 0.2 mg/dL (0.2-1.2); Calc. Creatinine Clearance 64 mL/min (70-130); Calcium 8.4 mg/dL (7.8-10.44); Carbon Dioxide 28 mmol/L (23-31); Chloride 104 mmol/L (98-107); Globulin 2.4 g/dL (2.4-3.5); Glucose 76 mg/dL (83-110); Protein, Total 5.6 g/dL (5.8-8.1); Sodium 141 mmol/L (136-145)
[2020-10-09] MEDS: Levothyroxine Sodium 25 MCG TAB PO SCH (05:58)
[2020-10-09 08:36] VITALS: TEMP 97.9
[2020-10-09] MEDS: NIFEdipine XL 30 MG TAB PO SCH (08:37)
[2020-10-09] MEDS: Magnesium Oxide 400 MG TAB PO SCH (08:38)
[2020-10-09] MEDS: Furosemide 20 MG TAB PO SCH (08:39)
[2020-10-09] MEDS: Allopurinol 100 MG TAB PO SCH (08:39)
[2020-10-09] MEDS: predniSONE 20 MG TAB PO SCH (08:39)
[2020-10-09] MEDS: Losartan 25 MG TAB PO SCH (08:39)
[2020-10-09] MEDS: Pregabalin 75 MG CAP PO SCH (08:39)
[2020-10-09] MEDS: Apixaban 5 MG TAB PO SCH (08:40)
[2020-10-09] MEDS: Potassium Bicarbonate/Cit Ac 20 MEQ TAB PO SCH (08:40)
[2020-10-09] MEDS: Pantoprazole 40 MG GRANULES PACKET PO SCH (08:40)
[2020-10-09] MEDS ORDERED: Amiodarone 200 MG TAB PO SCH (09:00)
[2020-10-09] MEDS: Acetaminophen 325 MG TAB PO PRN (11:14)
[2020-10-09 12:55] VITALS: BP 147/65
== END 2020-10-09 15:48 | DRG 208 ==
LOC: ERS 12:48 → CCU 14:13 → 2NO 10-03 14:17
PROVIDERS: ADMIT Family Medicine; ATTEND Family Medicine
PROC: 5A1945Z Respiratory Ventilation, 24-96 Consecutive Hours (ICD-10-PCS; principal; 2020-09-28)
DX: J18.9 Pneumonia, unspecified organism (principal); J96.01 Acute respiratory failure with hypoxia; E87.2 Acidosis; J44.1 Chronic obstructive pulmonary disease with (acute) exacerbation; J44.0 Chronic obstructive pulmonary disease with (acute) lower respiratory infection; G93.49 Other encephalopathy; F05 Delirium due to known physiological condition; A04.72 Enterocolitis due to Clostridium difficile, not specified as recurrent; F17.210 Nicotine dependence, cigarettes, uncomplicated; E03.9 Hypothyroidism, unspecified; G62.9 Polyneuropathy, unspecified; I10 Essential (primary) hypertension; I48.0 Paroxysmal atrial fibrillation; R13.10 Dysphagia, unspecified; Z90.89 Acquired absence of other organs; Z90.49 Acquired absence of other specified parts of digestive tract; Z90.710 Acquired absence of both cervix and uterus; Z85.42 Personal history of malignant neoplasm of other parts of uterus; Z86.711 Personal history of pulmonary embolism
CPT/HCPCS: 36415; 36600; 71045; 71275; 80048; 80053; 82805; 83605; 83735; 84100; 84145; 84443; 84484; 85025; 87324; 87449; 87493; 93005; 93010; 93306; 94002; 94003; 94640; 94660; 94760; 96365; 96366; 96372; 96375; 96376; 99292; C9113; J0282; J0360; J0456; J0696; J1160; J1630; J1650; J2060; J2405; J2704; J2920; J3010; J3490; J7030; J7050; J7070; J7512; J7620; Q9967

== ENCOUNTER 2020-11-23 11:23 | Outpatient (CLI) | payer MEDICARE, BC | END 2020-11-23 11:24 | disposition home or self-care (01) | LOC: BICRAD 11:23 | PROVIDERS: ATTEND Internal Medicine Critical Care Medicine | DX: R06.00 Dyspnea, unspecified (principal); I70.0 Atherosclerosis of aorta | CPT/HCPCS: 71046 ==

== ENCOUNTER 2021-04-15 13:43 | Outpatient (CLI) | payer MEDICARE, BC | END 2021-04-15 13:44 | disposition home or self-care (01) | LOC: BICRAD 13:43 | PROVIDERS: ATTEND Internal Medicine Critical Care Medicine | DX: R06.00 Dyspnea, unspecified (principal); J98.4 Other disorders of lung | CPT/HCPCS: 71046 ==

== ENCOUNTER 2022-02-01 09:27 | Outpatient (CLI) | payer MEDICARE, BC | END 2022-02-01 09:28 | disposition home or self-care (01) | LOC: RAD 09:27 | PROVIDERS: ATTEND Internal Medicine Critical Care Medicine | DX: R06.00 Dyspnea, unspecified (principal) | CPT/HCPCS: 71046 ==

== ENCOUNTER 2022-08-22 10:21 | Outpatient (CLI) | payer MEDICARE, BC | END 2022-08-22 10:22 | disposition home or self-care (01) | LOC: RAD 10:21 | PROVIDERS: ATTEND Internal Medicine Critical Care Medicine | DX: R06.00 Dyspnea, unspecified (principal); J98.4 Other disorders of lung | CPT/HCPCS: 71046 ==

== ENCOUNTER 2022-10-17 08:47 | Outpatient (CLI) | payer MEDICARE, BC | END 2022-10-17 08:48 | disposition home or self-care (01) | LOC: RAD 08:47 | PROVIDERS: ATTEND Internal Medicine Critical Care Medicine | DX: R06.00 Dyspnea, unspecified (principal); J98.4 Other disorders of lung; J98.6 Disorders of diaphragm; Z98.890 Other specified postprocedural states | CPT/HCPCS: 71046 ==